=== PATIENT | female | born 1980 | race Caucasian/White ===

== ENCOUNTER 2017-12-11 08:41 | Observation (INO) ==
[2017-12-11 08:58] VITALS: TEMP 98.4; O2SAT 100
--- NOTE | 2017-12-11 09:07 | ED ---
HPI General Chief Complaint: Chest Pain Stated Complaint: Chest Pain Time Seen by Provider: 12/11/17 08:44 Source: patient, EMS, RN notes reviewed and old records reviewed Mode of arrival: EMS Limitations: no limitations History of Present Illness HPI narrative: 37 y/o female presents chest pain and shortness of breath today while she was driving. She pulled over and called 911. She states that she has not seen a physician since she moved down here from [place] last July. She states that she is off her Coumadin that she is supposed to take for a prior clot to her lung because she just stopped taking it. She denies any other associated symptoms. She denies specific modifying factors. She states that she also has medullary sponge kidney disease and has not had her kidney function checked in a while but before it was normal. Quality was tightness. Severity was moderate. She denies specific modifying factors. complaint: chest pain STEMI Alert: No Onset (ago): hour(s) Duration: constant Onset: during rest Pain location: substernal Severity: moderate Pain radiation: none Relieving factors: nothing Exacerbating factors: nothing Treatments prior to arrival chest pain: none Related Data Home Medications Medication Instructions Recorded Confirmed No Known Home Medications 12/11/17 12/11/17 Allergies Allergy/AdvReac Type Severity Reaction Status Date / Time No Known Allergies Allergy Unverified 12/11/17 08:58 Review of Systems ROS: all other systems reviewed are negative PMFSH History History Provided By: Patient (patient noted cardiac family history) Medical History Medical History Medullary sponge kidney (Acute) PNA (pneumonia) (Acute) Pulmonary embolism (Acute) Surgical History Surgical History History of parathyroidectomy (Acute) History of surgery on arm (Acute) Social History Social History Substance History: No History of Abuse Second Hand Smoke Exposure: Yes Smoking Status: Current some day smoker Tobacco Type: Cigarettes How Often Do You Have a Drink Containing Alcohol: 4 or more times a week Recent Travel in [facility] within the Last 8 Weeks: No Recent Out of Country Travel within the Last 8 Weeks: No Exam Narrative Exam Narrative: GENERAL: 37 y/o female in no apparent distress SKIN: Focused skin assessment warm/dry. HEAD: Atraumatic. Normocephalic. EYES: Pupils equal and round. No scleral icterus. No injection or drainage. ENT: No nasal bleeding or discharge. Mucous membranes pink and moist. NECK: Trachea midline. CARDIOVASCULAR: Regular rate and rhythm. RESPIRATORY: No accessory muscle use. Clear to auscultation. Breath sounds equal bilaterally. GASTROINTESTINAL: Abdomen soft, non-tender, nondistended. MUSCULOSKELETAL: No obvious deformities. No clubbing. No cyanosis. No edema. NEUROLOGICAL: Awake and alert. Motor grossly within normal limits. Normal speech. Course Reevaluation(s) Reevaluation #1: ed workup no emergent process, agrees to [facility] admit for further care Initial Documented Vital Signs Temperature 98.4 F 12/11/17 08:48 Pulse Rate 73 12/11/17 08:48 Respiratory Rate 18 12/11/17 08:48 Blood Pressure 149/80 H 12/11/17 08:48 Pulse Oximetry 100 12/11/17 08:48 Last Documented Vital Signs Temperature 98.4 F 12/11/17 08:48 Pulse Rate 73 12/11/17 08:48 Respiratory Rate 18 12/11/17 08:48 Blood Pressure 149/80 H 12/11/17 08:48 Pulse Oximetry 100 12/11/17 09:23 Medical Decision Making MDM Narrative Medical decision making narrative: will check labs, imaging and reevaluate, high risk for PE given prior PE off Coumadin Medical Screen Exam Complete: Yes Emergency Medical Condition: Yes Differential Diagnosis Differential Diagnosis: pe, musculoskeletal, atypical cardiac, anxiety, gasritis Lab Data Lab results reviewed: Yes I reviewed the patient's lab results. Result diagrams: 12/11/17 08:53 12/11/17 08:53 Lab Results 12/11/17 12/11/17 12/11/17 Range/Units 08:53 08:53 08:53 WBC 7.6 (4.0-11.0) th/mm3 RBC 4.39 (4.00-5.30) mil/mm3 Hgb 14.5 (11.6-15.3) gm/dL Hct 42.1 (35.0-46.0) % MCV 95.9 (80.0-100.0) fL MCH 33.1 (27.0-34.0) pg MCHC 34.5 (32.0-36.0) % RDW 15.0 (11.6-17.2) % Plt Count 231 (150-450) th/mm3 MPV 7.2 (7.0-11.0) fL Prelim Diff (Auto) Slide review pending Neut % (Auto) 84.1 H (16.0-70.0) % Lymph % (Auto) 6.7 L (9.0-44.0) % Island % (Auto) 4.9 (0.0-8.0) % Eos % (Auto) 1.4 (0.0-4.0) % Baso % (Auto) 2.9 H (0.0-2.0) % Neut # (Auto) 6.4 (1.8-7.7) th/mm3 Lymph # (Auto) 0.5 L (1.0-4.8) th/mm3 [place] # (Auto) 0.4 (0.0-0.9) th/mm3 Eos # (Auto) 0.1 (0.0-0.4) th/mm3 Baso # (Auto) 0.2 (0.0-0.2) th/mm3 WBC Differential Manual diff final Seg Neuts % (Manual) 78 H (16-70) % Band Neuts % (Manual) 8 H (0-6) % Lymphocytes % (Manual) 8 L (9-44) % Monocytes % (Manual) 4 (0-8) % Basophils % (Manual) 2 (0-2) % Abs Neuts (Manual) 6.5 (1.8-7.7) th/mm3 Differential Comment . Platelet Estimate Normal (Normal) Platelet Morphology Normal (Normal) PT 10.0 (9.8-11.6) sec INR 1.0 Ratio APTT 22.6 L (24.3-30.1) sec Sodium 141 (136-145) meq/L Potassium 3.5 (3.5-5.1) meq/L Chloride 111 H (98-107) meq/L Carbon Dioxide 19.2 L (21.0-32.0) meq/L Anion Gap 11 (5-15) meq/L BUN 9 (7-18) mg/dL Creatinine 1.09 H (0.50-1.00) mg/dL Estimated GFR 56 L (>89) mL/min Random Glucose 103 (74-106) mg/dL Calcium 10.3 H (8.5-10.1) mg/dL Magnesium 1.2 L (1.5-2.5) mg/dL Total Bilirubin 0.6 (0.2-1.0) mg/dL AST 92 H (15-37) U/L ALT 73 H (10-53) U/L Alkaline Phosphatase 91 (45-117) U/L Total Creatine Kinase 109 (26-192) U/L CK-MB (CK-2) 1.4 (0.5-3.6) ng/mL Troponin I Less than 0.02 L (0.02-0.05) ng/mL Total Protein 7.7 (6.4-8.2) g/dL Albumin 3.8 (3.4-5.0) g/dL Imaging Data Attestation: I personally reviewed and interpreted this imaging study as follows : Radiologist's impression: Chest CTA 12/11/17 08:52 CONCLUSION: 1. No evidence of pulmonary embolism. No filling defects are identified. Blebs in the apices Chest X-Ray 12/11/17 08:52 CONCLUSION: 1. Calcified mediastinal nodes. 2. Otherwise, negative portable chest. Discharge Plan Discharge Disposition Patient Disposition: 30 Still Patient Discharge Condition Condition: Stable Discharge Details Diagnosis: Chest pain Physicians Team ED Provider: Faith Manzanares Primary Care Provider: UNKNOWN, Rxs /Orders / Referrals /Forms Prescriptions: No Action No Known Home Medications RF: 0 Discharge Instructions Patient Printed Instructions: Chest Pain (ED) Status ED Status: Admitted Observation Patient
[2017-12-11 09:09] LABS: Baso # (Auto) 0.2 th/mm3 (0.0-0.2); Baso % (Auto) 2.9 % (0.0-2.0); Eos # (Auto) 0.1 th/mm3 (0.0-0.4); Eos % (Auto) 1.4 % (0.0-4.0); Hematocrit 42.1 % (35.0-46.0); Hemoglobin 14.5 gm/dL (11.6-15.3); Lymph # (Auto) 0.5 th/mm3 (1.0-4.8); Lymph % (Auto) 6.7 % (9.0-44.0); Mean Corpuscular HGB Conc 34.5 % (32.0-36.0); Mean Corpuscular Hemoglobin 33.1 pg (27.0-34.0); Mean Corpuscular Volume 95.9 fL (80.0-100.0); Mean Platelet Volume 7.2 fL (7.0-11.0); Mono # (Auto) 0.4 th/mm3 (0.0-0.9); Mono % (Auto) 4.9 % (0.0-8.0); Neut # (Auto) 6.4 th/mm3 (1.8-7.7); Neut % (Auto) 84.1 % (16.0-70.0); Platelet Count 231 th/mm3 (150-450); Red Blood Count 4.39 mil/mm3 (4.00-5.30); White Blood Count 7.6 th/mm3 (4.0-11.0)
--- NOTE | 2017-12-11 09:13 | XR ---
EXAM DATE: 12/11/2017 9:11 AM EDT AGE/SEX: 37 years / Female INDICATIONS: Dizzy, chest pain. CLINICAL DATA: This is the patient's initial encounter. Patient reports that signs and symptoms have been present for 1 day and indicates a pain score of 7/10. MEDICAL/SURGICAL HISTORY: . medullary sponge kidneys, PE. Appendectomy. Para thyroidectomy COMPARISON: No prior exams available for comparison. FINDINGS: A single AP view of the chest demonstrates the lungs to be symmetrically aerated without evidence of mass, infiltrate or effusion. Calcified AP nodes. The cardiomediastinal contours are unremarkable. Osseous structures are intact. CONCLUSION: 1. Calcified mediastinal nodes. 2. Otherwise, negative portable chest. Electronically signed by: Mane Anderson MD 12/11/2017 9:12 AM EDT
[2017-12-11 09:18] LABS: Activated Partial Thrombo Time 22.6 sec (24.3-30.1)
[2017-12-11 09:40] LABS: Albumin 3.8 g/dL (3.4-5.0); Anion Gap 11 meq/L (5-15); Aspartate Aminotransferase 92 U/L (15-37); Blood Urea Nitrogen 9 mg/dL (7-18); Calcium 10.3 mg/dL (8.5-10.1); Carbon Dioxide 19.2 meq/L (21.0-32.0); Chloride 111 meq/L (98-107); Glomerular Filtration Rate 56 mL/min (>89); Glucose,Random 103 mg/dL (74-106); Magnesium 1.2 mg/dL (1.5-2.5); Potassium 3.5 meq/L (3.5-5.1); Sodium 141 meq/L (136-145)
[2017-12-11 09:41] LABS: Alanine Aminotransferase 73 U/L (10-53)
[2017-12-11 09:45] LABS: Alkaline Phosphatase 91 U/L (45-117); Creatine Kinase 109 U/L (26-192); Total Protein 7.7 g/dL (6.4-8.2)
[2017-12-11 09:49] LABS: Lymphocytes 8 % (9-44); Monocytes 4 % (0-8); Platelet Estimate Normal (Normal); Platelet Morphology Normal (Normal)
[2017-12-11 09:57] LABS: Creatine Kinase MB 1.4 ng/mL (0.5-3.6)
[2017-12-11] MEDS ORDERED: Sod Chloride 0.9% Inj 1,000 ML IV.SIG SCH (10:00)
--- NOTE | 2017-12-11 11:24 | CT ---
EXAM DATE: 12/11/2017 11:20 AM EDT AGE/SEX: 37 years / Female INDICATIONS: Chest tightness this morning CLINICAL DATA: This is the patient's initial encounter. Patient reports that signs and symptoms have been present for 1 day and indicates a pain score of 3/10. MEDICAL/SURGICAL HISTORY: None. None. RADIATION DOSE: 5.43 CTDI (mGy) COMPARISON: No prior exams available for comparison. TECHNIQUE: Volumetric scanning was performed using a multi-row detector CT scanner during bolus infu sherry of 70 ml Omnipaque 350 (iohexol) nonionic water-soluble contrast as a single exam dose. The anthony a was post processed with a variety of visualization algorithms including full volume maximum intensi ty projection and sliding thin slab reformation. Using automated exposure control and adjustment of t he mA and/or kV according to patient size, radiation dose was kept as low as reasonably achievable to obtain optimal diagnostic quality images. DICOM format image data is available electronically for r eview and comparison. FINDINGS: Pulmonary Arteries: No filling defects are seen in the pulmonary arteries out to the subsegmental ve ssels. The left and right pulmonary arteries are normal in diameter. Lung: No infiltrates seen. Scattered blebs in the apices Effusion: None. Mediastinum: No evidence of mediastinal or hilar adenopathy except calcified granuloma in the AP win estefany. Other: The axilla is unremarkable. CONCLUSION: 1. No evidence of pulmonary embolism. No filling defects are identified. Blebs in the apices Electronically signed by: Db Guerra MD 12/11/2017 11:23 AM EDT
[2017-12-11] MEDS ORDERED: Aspirin 325 MG Tablet PO ONE (11:48)
[2017-12-11 12:57] VITALS: BP 151/75; PULSE 60; RESP 19
--- NOTE | 2017-12-11 13:19 | P.HPCA ---
History of Present Illness Primary Care Physician: UNKNOWN Chief Complaint: Chest pain History of Present Illness: This is a 37-year-old female that presents to ED via EVAC plan of chest discomfort. States that she developed sharp pain whenever she would take in a big breath while driving into work. It was in the center of her chest. It would last for a couple seconds at a time but continued to recur multiple times. Mildly short of breath. Was diaphoretic. May be felt a little nauseous without emesis. She has history of a DVT and PE about a year ago and was on Coumadin and took about 6 months but then took herself off of it. Cannot recall ever having stress test or heart catheterization. History of PE and right lower extremity DVT about a year ago. Took warfarin for about 6 months and then took herself off it. Also history of tobacco abuse. Denies hypertension, hyperlipidemia, diabetes, and CAD. Patient smokes 1 pack of cigarettes daily for 25 years. She has on average 2 beers and 2 shots per evening. Denies illicit drug use. Her father had a CABG in his early 60s. - Diagnosis (1) Chest pain (2) Tobacco abuse (3) Elevated LFTs Review of Systems General: Patient denies fevers, chills, and recent travel. HEENT: Patient denies headache, sore throat, difficulty swallowing. Cardiovascular: Has the chest discomfort as mentioned above. Denies sensation of heart beating rapidly or irregularly. No syncope. Was diaphoretic Respiratory: She was short of breath and had discomfort in her chest when she took in a deep breath. Denies coughing wheezing or hemoptysis. GI: Patient denies nausea, vomiting, diarrhea, abdominal pain, bloody stools. Musculoskeletal: Patient denies joint pain or edema. Denies calf pain or edema. Neurovascular: Patient denies numbness, tingling, weakness in extremities. Denies headache. Endocrine: Denies polyuria and polydipsia. Hematologic: Denies easy bruising. Skin: Denies rash or itching. PMFSH - History History Provided By: Patient (patient noted cardiac family history) - Medical History Medical History: Medical History (Last Reviewed 12/11/17 @ 09:05 by Faith Manzanares MD) Medullary sponge kidney PNA (pneumonia) Pulmonary embolism - Surgical History Surgical History: Surgical History (Last Reviewed 12/11/17 @ 09:05 by Faith Manzanares MD) History of lithotripsy History of parathyroidectomy History of surgery on arm - Tobacco History Second Hand Smoke Exposure: Yes Tobacco Use In Past 30 Days: Yes Smoking Status: Current some day smoker Tobacco Type: Cigarettes - Alcohol History How Often Do You Have a Drink Containing Alcohol: 4 or more times a week - Substance Use History Substance History: No History of Abuse - Travel History Recent Travel in the [place] Within the Last 8 Weeks: No Recent Travel Out of the Country Within the Last 8 Weeks: No - Immunization History Tetanus Immunization: Unsure Hx Influenza Vaccine This Season: No Medications and Allergies Active Medications: Active Medications Sodium Chloride (Ns Inj) 1,000 mls @ 0 mls/hr IV.SIG BOLUS SONDRA Last Infusion: 12/11/17 11:27 Dose: Infused Sodium Chloride (Ns Flush) 2 ml IV.FLUSH UNSCH PRN PRN Reason: FLUSH AFTER USING IV ACCESS Allergies Allergy/AdvReac Type Severity Reaction Status Date / Time No Known Allergies Allergy Unverified 12/11/17 08:58 Home Medications Medication Instructions Recorded Confirmed Type No Known Home Medications 12/11/17 12/11/17 History Exam Vital signs: Vital Signs 12/11/17 08:48 12/11/17 08:52 12/11/17 09:23 Temperature 98.4 F Pulse Rate 73 Respiratory Rate 18 Blood Pressure 149/80 H Pulse Oximetry 100 100 100 12/11/17 12:57 Temperature Pulse Rate 60 Respiratory Rate 19 Blood Pressure 151/75 H Pulse Oximetry 100 Intake & Output 12/10/17 12/11/17 12/11/17 18:59 06:59 18:59 Intake Total 1000 / 1000 Balance 1000 / 1000 Weight 49.895 kg Intake: IV 1000 / 1000 NS Inj 1,000 ML @ Wide Open IV. 1000 / 1000 SIG BOLUS SONDRA Rx#:[id number] Narrative: GENERAL: This is a well-nourished, well-developed patient, in no apparent distress. Patient speaks in clear complete sentences. Patient is pleasant. HEENT: Head is atraumatic and normocephalic. Neck is supple without lymphadenopathy and trachea is midline. No JVD or carotid bruits. CARDIOVASCULAR: Regular rate and rhythm without murmurs, gallops, or rubs. RESPIRATORY: Clear to auscultation. Breath sounds equal bilaterally. No wheezes , rales, or rhonchi. Chest wall is nontender. No use of accessory muscles. GASTROINTESTINAL: Abdomen is nontender, nondistended. Abdomen soft. No obvious pulsatile mass or bruit. No CVA tenderness. Strong femoral pulses bilaterally. Normal bowel sounds in all quadrants. MUSCULOSKELETAL: Patient is moving upper and lower extremities freely. No calf tenderness or edema, no Homans sign. Strong pulses in upper and lower extremities. NEUROLOGICAL: Patient is alert and oriented. Cranial nerves 2-12 are grossly intact. No focal deficits and speech is clear. SKIN: No rash and turgor is normal. Results 12/11/17 08:53 12/11/17 08:53 Cardiac Enzymes 12/11/17 Range/Units 08:53 AST 92 H (15-37) U/L CK-MB (CK-2) 1.4 (0.5-3.6) ng/mL Troponin I Less than 0.02 L (0.02-0.05) ng/mL Coagulation 12/11/17 Range/Units 08:53 PT 10.0 (9.8-11.6) sec APTT 22.6 L (24.3-30.1) sec CBC 12/11/17 Range/Units 08:53 WBC 7.6 (4.0-11.0) th/mm3 RBC 4.39 (4.00-5.30) mil/mm3 Hgb 14.5 (11.6-15.3) gm/dL Hct 42.1 (35.0-46.0) % Plt Count 231 (150-450) th/mm3 Neut # (Auto) 6.4 (1.8-7.7) th/mm3 Lymph # (Auto) 0.5 L (1.0-4.8) th/mm3 [place] # (Auto) 0.4 (0.0-0.9) th/mm3 Eos # (Auto) 0.1 (0.0-0.4) th/mm3 Baso # (Auto) 0.2 (0.0-0.2) th/mm3 Comprehensive Metabolic Panel 12/11/17 Range/Units 08:53 Sodium 141 (136-145) meq/L Potassium 3.5 (3.5-5.1) meq/L Chloride 111 H (98-107) meq/L Carbon Dioxide 19.2 L (21.0-32.0) meq/L BUN 9 (7-18) mg/dL Creatinine 1.09 H (0.50-1.00) mg/dL Calcium 10.3 H (8.5-10.1) mg/dL AST 92 H (15-37) U/L ALT 73 H (10-53) U/L Alkaline Phosphatase 91 (45-117) U/L Total Protein 7.7 (6.4-8.2) g/dL Albumin 3.8 (3.4-5.0) g/dL Intake and Output 12/10/17 12/11/17 12/11/17 22:59 06:59 14:59 Intake Total 1000 / 1000 Balance 1000 / 1000 Intake: IV 1000 / 1000 NS Inj 1,000 ML @ Wide Open IV. 1000 / 1000 SIG BOLUS SONDRA Rx#:[id number] Other: Weight 49.895 kg Patient Weight 12/12/17 06:59 Weight 49.895 kg - Imaging and Cardiology Imaging: Impressions Chest CTA 12/11/17 08:52 CONCLUSION: 1. No evidence of pulmonary embolism. No filling defects are identified. Blebs in the apices Chest X-Ray 12/11/17 08:52 CONCLUSION: 1. Calcified mediastinal nodes. 2. Otherwise, negative portable chest. EKG interpretations - EKG EKG shows: sinus rhythm (Initial EKG has quite a bit of baseline artifact to look sinus rhythm without significant ST segment depressions or elevations. Will repeat EKG.) Caprini VTE Risk Assessment Caprini VTE Risk Assessment: No/Low Risk (score <= 1) Caprini Risk Assessment Model: Point Value = 1 Point Value = 2 Point Value = 3 Point Value = 5 Age 41-60 Minor surgery BMI > 25 kg/m2 Swollen legs Varicose veins or History of unexplained or recurrent spontaneous Oral contraceptives or hormone replacement Sepsis (< 1 month) Serious lung disease, including pneumonia (< 1 month) Abnormal pulmonary function Acute myocardial infarction Congestive heart failure (< 1 month) History of inflammatory bowel disease Medical patient at bed rest Age 61-74 Arthroscopic surgery Major open surgery (> 45 min) Laparoscopic surgery (> 45 min) Malignancy Confined to bed (> 72 hours) Immobilizing plaster cast Central venous access Age >= 75 History of VTE Family history of VTE Factor V Leiden Prothrombin [id number] Lupus anticoagulant Anticardiolipin antibodies Elevated serum homocysteine Heparin-induced thrombocytopenia Other congenital or acquired thrombophilia Stroke (< 1 month) Elective arthroplasty Hip, pelvis, or leg fracture Acute spinal cord injury (< 1 month) Prophylaxis Regimen: Total Risk Factor Score Risk Level Prophylaxis Regimen 0-1 Low Early ambulation 2 Moderate Order ONE of the following: *Sequential Compression Device (SCD) *Heparin 5000 units SQ BID 3-4 Higher Order ONE of the following medications: *Heparin 5000 units SQ TID *Enoxaparin/Lovenox 40 mg SQ daily (WT < 150 kg, CrCl > 30 mL/min) *Enoxaparin/Lovenox 30 mg SQ daily (WT < 150 kg, CrCl > 10-29 mL/min) *Enoxaparin/Lovenox 30 mg SQ BID (WT < 150 kg, CrCl > 30 mL/min) AND/OR *Sequential Compression Device (SCD) 5 or more Highest Order ONE of the following medications: *Heparin 5000 units SQ TID (Preferred with Epidurals) *Enoxaparin/Lovenox 40 mg SQ daily (WT < 150 kg, CrCl > 30 mL/min) *Enoxaparin/Lovenox 30 mg SQ daily (WT < 150 kg, CrCl > 10-29 mL/min) *Enoxaparin/Lovenox 30 mg SQ BID (WT < 150 kg, CrCl > 30 mL/min) AND *Sequential Compression Device (SCD) Assessment and Plan - Assessment (1) Chest pain Code(s): R07.9 - Chest pain, unspecified Status: Acute (2) Tobacco abuse Code(s): Z72.0 - Tobacco use Status: Acute (3) Elevated LFTs Code(s): R94.5 - Abnormal results of liver function studies Status: Acute - Plan * Chest pain: Patient has had first set of cardiac enzymes and EKGs for ruling out purposes. Will be evaluated with Dr. Carroll Goodwin of cardiology and chest pain center. Likely have a Dex protocol ETT and would be discharged home if her stress test is nonischemic. Follow-up with PCP. Return to ED for interval issues. * Tobacco abuse: Patient counseled on the importance of smoking cessation. * Elevated LFTs: Patient counseled importance of decreasing her alcohol intake and following this up with her PCP. Patient is stable at this time. She is agreeable to this plan. (1) Chest pain Qualifiers: Chest pain type: unspecified Qualified Code(s): R07.9 - Chest pain, unspecified
--- NOTE | 2017-12-11 14:50 | TR ---
Date Performed: 12/11/2017 Time Performed: 14:12:10 DOCTOR: Carroll Goodwin DRUG LIST: CLINICAL HISTORY: CHEST PAIN REASON FOR TEST: REASON FOR ENDING: OBSERVATION: CONCLUSION: MORENO PROTOCOL. NO CP. TEST STOPPED AFTER EXCEEDING GOAL HR SECONDARY TO SOB AND LEG FATIGUE. GOOD EXERCISE TOLERANCE.Maximum UX=042 % Max HR Achieved=93.0% Maximum FF=889/80 Total Exer cise Time=10:00 COMMENTS: Patient exercised using the [place] protocol. No electrocardiographic changes were seen to suggest ischemia. Hemodynamic response to exercise was normal. No significant arrhythmia was prese nt.
[2017-12-11] MEDS ORDERED: ALPRAZolam 0.25 MG Tablet PO PRN (15:00)
--- NOTE | 2017-12-12 08:31 | ECG ---
Date Performed: 12/11/2017 Time Performed: 08:51:09 PTAGE: 37 years EKG: ATRIAL FIBRILLATION INCOMPLETE RIGHT BUNDLE BRANCH BLOCK ABNORMAL RHYTHM ECG Since previous tracing, no significant change noted NO PREVIOUS TRACING DOCTOR: Polina Levine Interpretating Date/Time 12/12/2017 08:30:01
[2017-12-12] MEDS ORDERED: Aspirin 325 MG Tablet PO SCH (09:00)
--- NOTE | 2017-12-12 18:23 | ECG ---
Date Performed: 12/11/2017 Time Performed: 13:15:15 PTAGE: 37 years EKG: SINUS BRADYCARDIA WITH SINUS ARRHYTHMIA INCOMPLETE RIGHT BUNDLE BRANCH BLOCK Since the prev ious tracing, no significant change noted BORDERLINE ECG PREVIOUS TRACING : 12/11/2017 08.51 DOCTOR: Ezequiel Diaz Interpretating Date/Time 12/12/2017 18:20:33
== END 2017-12-11 15:18 | disposition home or self-care (01) ==
LOC: NEDA 08:41 → NEPE 08:41 → NEPFCDU 13:25
PROVIDERS: ADMIT Internal Medicine Cardiovascular Disease; ATTEND Internal Medicine Cardiovascular Disease
DX: R07.9 Chest pain, unspecified; I48.91 Unspecified atrial fibrillation; Z86.718 Personal history of other venous thrombosis and embolism; F17.210 Nicotine dependence, cigarettes, uncomplicated; Q61.5 Medullary cystic kidney; R94.5 Abnormal results of liver function studies; Z86.711 Personal history of pulmonary embolism